=== PATIENT | female | born 1985 | race Caucasian/White ===

== ENCOUNTER 2025-05-17 09:05 | Emergency (ER) | payer OTHER, MEDICAID ==
[~2025-05-17] VITALS: Ht 157.5 cm; Wt 69.4 kg
[~2025-05-17 09:05] MED LIST: CYCL-394 PO; MELO-100 PO; OXYC-145 PO; SERT100T PO
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
[2025-05-17] MEDS: ketorolac trometh 15mg/ml vial 15 MG/ML ML IV ONE (10:19)
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
--- NOTE | 2025-05-17 10:31 | RADIOLOGY REPORT ---
CHEST RADIOGRAPH Indication: CP Technique: Frontal and lateral view of the chest was obtained Comparison: None FINDINGS: Lines and Tubes: None Lungs: Clear Pleura: No effusion. No pneumothorax. Cardiomediastinal contours: Unremarkable Bones: Unremarkable IMPRESSION: No evidence of acute disease.
[2025-05-17 11:51] VITALS: BP 111/77; PULSE 72; RESP 16; TEMP 98.2; O2SAT 100
== END 2025-05-17 11:58 | disposition home or self-care (01) ==
LOC: ER 09:05
DX: S13.4XXA Sprain of ligaments of cervical spine, initial encounter (principal); S20.211A Contusion of right front wall of thorax, initial encounter; V43.52XA Car driver injured in collision with other type car in traffic accident, initial encounter; Y93.89 Activity, other specified; Y92.410 Unspecified street and highway as the place of occurrence of the external cause; Y99.8 Other external cause status
CPT/HCPCS: 70450; 71046; 72125; 96374; 99285; J1885; L0172